=== PATIENT | female | born 1950 | race Caucasian/White ===

== ENCOUNTER → 2019-11-11 | Outpatient (CLI) | payer MEDICARE ==
[2019-11-11 14:51] LABS: BASOPHILS # (AUTO) 0.12 x10^3/uL (0-0.1); BASOPHILS % (AUTO) 1 % (0-1); EOSINOPHILS # (AUTO) 0.79 x10^3/uL (0-0.4); EOSINOPHILS % (AUTO) 8 % (1-7); LYMPHOCYTES # (AUTO) 2.52 x10^3/uL (1-3.4); LYMPHOCYTES % (AUTO) 24 % (22-44); MD NO; MEAN CORPUSCULAR HEMOGLOBIN 28.8 pg (27.0-34.8); MEAN CORPUSCULAR HGB CONC 31.5 g/dL (32.4-35.8); MEAN CORPUSCULAR VOLUME 91.5 fL (80-100); MEAN PLATELET VOLUME 8.6 fL (7.4-10.4); MONOCYTES # (AUTO) 0.72 x10^3/uL (0.2-0.8); MONOCYTES % (AUTO) 7 % (2-9); NEUTROPHILS # (AUTO) 6.45 x10^3/uL (1.8-6.8); NEUTROPHILS % (AUTO) 61 % (42-75); PLATELET COUNT 344 x10^3/uL (130-400); RED BLOOD COUNT 4.74 x10^6/uL (3.82-5.3)
[2019-11-11 15:01] LABS: ANION GAP 4 mmol/L (5-15); CALCIUM 8.9 mg/dL (8.5-10.1); CHLORIDE 101 mmol/L (98-107)
[2019-11-11 15:13] LABS: INTERNATIONAL NORMALIZED RATIO 0.97 (0.93-1.1)
== END | disposition home or self-care (01) ==
LOC: STAR 13:30
PROVIDERS: ATTEND Orthopaedic Surgery
DX: Z01.812 Encounter for preprocedural laboratory examination (principal); T84.84XA Pain due to internal orthopedic prosthetic devices, implants and grafts, initial encounter; Y83.8 Other surgical procedures as the cause of abnormal reaction of the patient, or of later complication, without mention of misadventure at the time of the procedure; Y92.89 Other specified places as the place of occurrence of the external cause; Z96.651 Presence of right artificial knee joint; Z20.828 Contact with and (suspected) exposure to other viral communicable diseases
CPT/HCPCS: 36415; 80048; 83036; 85025; 85610; 85730; 87081; 87635; 93005

== ENCOUNTER 2019-11-16 10:08 | Inpatient (IN) | payer MEDICARE ==
[~2019-11-16] VITALS: Ht 165.1 cm; Wt 99.5 kg
[~2019-11-16 10:08] MED LIST: EPINEPHRINE 1 MG/ML, 1ML ONE; FENTANYL PF 250 MCG/5ML ONE; KETOROLAC 60 MG/2 ML ONE; MIDAZOLAM 1 MG/ML, 2ML ONE; ROPIvacaine/PF 0.5%, 20 ML ONE; ROPIvacaine/PF 0.5%, 30 ML ONE; SODIUM CHLORIDE 0.9% 50 ML ONE; TOBRAMYCIN SULFATE 1.2 GM IMP ONE; TRANEXAMIC ACID 100 MG/ML, 10ML ONE; VANCOMYCIN 1,000 MG ONE
[2019-11-16] MEDS ORDERED: PROPOFOL 10 MG/ML, 20ML ONE (10:24)
[2019-11-16] MEDS ORDERED: GLYCOPYRROLATE 0.2MG/1ML, 5ML ONE ×2 (10:24→13:02)
[2019-11-16] MEDS ORDERED: ROCURONIUM 10MG/ML,5ML ONE (10:24)
[2019-11-16] MEDS ORDERED: ONDANSETRON 2MG/ML, 2ML ONE ×2 (10:24)
[2019-11-16] MEDS ORDERED: CEFAZOLIN 1,000 MG ONE ×2 (10:24)
[2019-11-16] MEDS ORDERED: DEXAMETHASONE 4 MG/ML, 1ML ONE ×2 (10:24)
[2019-11-16] MEDS ORDERED: NEOSTIGMINE 1 MG/ML, 10ML ONE ×2 (10:24→13:02)
[2019-11-16] MEDS ORDERED: ROPIvacaine/PF 0.5%, 30 ML ONE (10:25)
[2019-11-16] MEDS ORDERED: EPINEPHRINE 1 MG/ML, 1ML ONE (10:25)
[2019-11-16] MEDS ORDERED: METHYLENE BLUE 50 MG/10 ML AMP ONE (10:27)
[2019-11-16] MEDS ORDERED: LACTATED RINGERS 1,000 ML IV SCH (10:34)
[2019-11-16 10:44] VITALS: BP 191/78
[2019-11-16] MEDS ORDERED: SENNA/DOCUSATE TABLET PO PRN (11:00)
[2019-11-16] MEDS ORDERED: BISACODYL 10 MG SUPP PR PRN (11:00)
[2019-11-16] MEDS ORDERED: HYDROmorphone 1 MG/ML, 1ML INJ IV PRN (11:00)
[2019-11-16] MEDS ORDERED: ACETAMINOPHEN 500 MG TABLET PO ONE (11:00)
[2019-11-16] MEDS ORDERED: ONDANSETRON 4 MG TABLET PO PRN (11:00)
[2019-11-16] MEDS ORDERED: GABAPENTIN 300 MG CAPSULE PO ONE (11:00)
[2019-11-16] MEDS ORDERED: ACETAMINOPHEN 650 MG/20.3 ML UDC PO PRN (11:00)
[2019-11-16] MEDS ORDERED: DIPHENHYDRAMINE 25 MG CAPSULE PO PRN (11:00)
[2019-11-16] MEDS ORDERED: VANCOMYCIN PER PHARMACY MC PRN ×2 (11:00)
[2019-11-16] MEDS ORDERED: ZOLPIDEM 5MG TABLET PO PRN (11:00)
[2019-11-16] MEDS ORDERED: CHLORHEXIDINE 15 ML UDC MM ONE (11:00)
[2019-11-16] MEDS ORDERED: MAGNESIUM HYDROXIDE 8%, 30ML UDC PO PRN (11:00)
[2019-11-16] MEDS ORDERED: ONDANSETRON 2MG/ML, 2ML IV PRN (11:00)
[2019-11-16] MEDS ORDERED: CHLORHEXIDINE 15 ML UDC ONE (11:09)
[2019-11-16] MEDS ORDERED: GABAPENTIN 300 MG CAPSULE ONE (11:09)
[2019-11-16] MEDS ORDERED: AMIT50TA PO (11:19)
[2019-11-16] MEDS ORDERED: CLIN150C14 PO (11:27)
[2019-11-16] MEDS ORDERED: METH10TA2 PO (11:27)
[2019-11-16] MEDS ORDERED: MELO15TA24 PO (11:27)
[2019-11-16] MEDS ORDERED: ASPI-496 PO (11:27)
[2019-11-16] MEDS ORDERED: CAL-MAG-ZINC PO (11:27)
[2019-11-16] MEDS ORDERED: LEVO500C3 PO (11:27)
[2019-11-16] MEDS ORDERED: VANCOMYCIN 1,800 MG in SODIUM CHLORIDE 0.9% 250 ML IV ONE (11:30)
[2019-11-16] MEDS ORDERED: PHARMACOKINETIC CONSULTATION MC ONE (11:30)
[2019-11-16] MEDS ORDERED: ROSU5TAB PO (11:36)
[2019-11-16] MEDS ORDERED: TRAZ-175 PO (11:36)
[2019-11-16] MEDS ORDERED: CHOL10003 PO (11:36)
[2019-11-16] MEDS ORDERED: METO25TA2 PO (11:36)
[2019-11-16] MEDS ORDERED: ALBU18HF INH (11:36)
[2019-11-16] MEDS ORDERED: OXYC1TAB18 PO (11:36)
[2019-11-16] MEDS ORDERED: PANT500T PO (11:36)
[2019-11-16] MEDS ORDERED: CYAN25009 PO (11:36)
[2019-11-16] MEDS ORDERED: ESOM20CA PO (11:36)
[2019-11-16] MEDS ORDERED: DIPHENHYDRAMINE 50 MG/ML, 1ML IVPush PRN (12:00)
[2019-11-16] MEDS ORDERED: hydrALAzine 20 MG/ML, 1ML IV PRN (12:00)
[2019-11-16] MEDS ORDERED: PROMETHAZINE 25 MG/ML, 1ML IVPush PRN (12:00)
[2019-11-16] MEDS ORDERED: ONDANSETRON 2MG/ML, 2ML IVPush PRN (12:00)
[2019-11-16] MEDS ORDERED: DIAZEPAM 5 MG/ML, 2ML IVPush PRN (12:00)
[2019-11-16] MEDS ORDERED: ACETAMINOPHEN 325 MG TABLET PO PRN (12:00)
[2019-11-16] MEDS ORDERED: LABETALOL 5MG/ML, 20ML IV PRN (12:00)
[2019-11-16] MEDS ORDERED: FENTANYL PF 100 MCG/2ML IV PRN (12:00)
[2019-11-16] MEDS ORDERED: MEPERIDINE/PF 25MG/0.5ML IVPush PRN (12:00)
[2019-11-16] MEDS ORDERED: OXYcodone 5 MG/5 ML ORAL.SOL UDC PO PRN (12:00)
[2019-11-16] MEDS ORDERED: VANCOMYCIN 1,000 MG ONE (12:46)
[2019-11-16] MEDS ORDERED: HYDROmorphone 2 MG/ML, 1ML ONE (13:37)
[2019-11-16] MEDS: HYDROmorphone 1 MG/ML, 1ML INJ IVPush PRN ×4 (13:40→14:06)
[2019-11-16] MEDS ORDERED: FENTANYL PF 100 MCG/2ML ONE (13:53)
[2019-11-16] MEDS ORDERED: OXYcodone 5 MG/5 ML ORAL.SOL UDC ONE (13:54)
[2019-11-16] MEDS ORDERED: DIAZEPAM 5 MG/ML, 2ML ONE (13:54)
[2019-11-16] MEDS: DIAZEPAM 5 MG/ML, 2ML IVPush PRN ×2 (13:58→14:15)
[2019-11-16] MEDS ORDERED: ALBUTEROL HFA 90 MCG/SPRAY INH PRN (14:00)
[2019-11-16] MEDS: KETOROLAC 30 MG/1 ML IM SCH ×2 (15:39→20:36)
[2019-11-16] MEDS: METHADONE 10 MG TABLET PO SCH ×2 (15:39→20:37)
[2019-11-16] MEDS: ACETAMINOPHEN 650 MG/20.3 ML UDC PO SCH ×2 (15:39→20:38)
[2019-11-16] MEDS: NS + 20MEQ KCL 1,000 ML IV SCH (16:36)
[2019-11-16] MEDS ORDERED: HYDROmorphone 2MG TABLET ONE ×2 (17:50→20:52)
[2019-11-16] MEDS: CEFTRIAXONE PMX 2GM/50ML 50 ML IV SCH (17:51)
[2019-11-16] MEDS: ASPIRIN 81 MG TABLET EC PO SCH (17:51)
[2019-11-16] MEDS: HYDROmorphone 4MG TABLET PO PRN ×2 (17:52→20:54)
[2019-11-16] MEDS ORDERED: CEFAZOLIN PMX 2GM/50ML 50 ML IVPB SCH (18:00)
[2019-11-16 18:30] VITALS: BP 134/83
[2019-11-16] MEDS: AMITRIPTYLINE 50 MG TABLET PO SCH (20:36)
[2019-11-16] MEDS: ATORVASTATIN 20 MG TABLET PO SCH (20:36)
[2019-11-16] MEDS: DOCUSATE 100 MG CAPSULE PO SCH (20:36)
[2019-11-16] MEDS: TRAZODONE 150MG TABLET PO SCH (20:37)
[2019-11-16] MEDS: METOPROLOL TARTRATE 25 MG TAB PO SCH (20:46)
[2019-11-16 23:18] VITALS: BP 128/71
[2019-11-17 03:50] VITALS: BP 96/62
[2019-11-17] MEDS: NS + 20MEQ KCL 1,000 ML IV SCH ×2 (04:30→15:43)
[2019-11-17 04:43] LABS: HCT (SEDRATE) 35.8 % (34.6-47.8)
[2019-11-17] MEDS ORDERED: HYDROmorphone 2MG TABLET ONE ×4 (05:16→17:19)
[2019-11-17] MEDS: ASPIRIN 81 MG TABLET EC PO SCH ×2 (05:17→17:25)
[2019-11-17] MEDS: PANTOPRAZOLE 20MG TABLET PO SCH (05:17)
[2019-11-17] MEDS: METOPROLOL TARTRATE 25 MG TAB PO SCH ×2 (05:18→17:25)
[2019-11-17] MEDS: HYDROmorphone 4MG TABLET PO PRN ×4 (05:19→17:20)
[2019-11-17] MEDS ORDERED: DEXAMETHASONE 4 MG/ML, 1ML IVPush SCH (06:00)
[2019-11-17 06:52] VITALS: BP 99/61
[2019-11-17] MEDS: CHOLECALCIFEROL 1,000 UNIT TABLET PO SCH (08:05)
[2019-11-17] MEDS: KETOROLAC 30 MG/1 ML IM SCH ×3 (08:05→23:44)
[2019-11-17] MEDS: METOPROLOL SUCCINATE 25 MG TAB.ER.24H PO SCH (08:06)
[2019-11-17] MEDS: METHADONE 10 MG TABLET PO SCH ×3 (08:06→21:20)
[2019-11-17] MEDS: ACETAMINOPHEN 650 MG/20.3 ML UDC PO SCH ×3 (08:06→23:40)
[2019-11-17] MEDS: DOCUSATE 100 MG CAPSULE PO SCH ×2 (08:06→23:41)
[2019-11-17] MEDS ORDERED: PHARMACOKINETIC MONITORING MC PRN (11:00)
[2019-11-17] MEDS ORDERED: VANCOMYCIN PER PHARMACY MC PRN (11:00)
[2019-11-17] MEDS: VANCOMYCIN 1,400 MG in SODIUM CHLORIDE 0.9% 250 ML IV SCH (11:46)
[2019-11-17 14:20] VITALS: BP 115/67
[2019-11-17] MEDS: CEFTRIAXONE PMX 2GM/50ML 50 ML IV SCH (17:25)
[2019-11-17 19:50] VITALS: BP 117/51
[2019-11-17] MEDS: ATORVASTATIN 20 MG TABLET PO SCH (23:41)
[2019-11-17] MEDS: TRAZODONE 150MG TABLET PO SCH (23:41)
[2019-11-17] MEDS: AMITRIPTYLINE 50 MG TABLET PO SCH (23:41)
[2019-11-18] VITALS: BP 117/70
[2019-11-18 04:15] VITALS: BP 118/70
[2019-11-18] MEDS: NS + 20MEQ KCL 1,000 ML IV SCH ×2 (05:30→16:29)
[2019-11-18 06:37] VITALS: BP 115/59
[2019-11-18] MEDS: PANTOPRAZOLE 20MG TABLET PO SCH (06:37)
[2019-11-18] MEDS: METOPROLOL TARTRATE 25 MG TAB PO SCH ×2 (06:37→17:37)
[2019-11-18] MEDS: ASPIRIN 81 MG TABLET EC PO SCH ×2 (06:37→17:07)
[2019-11-18] MEDS ORDERED: HYDROmorphone 2MG TABLET ONE ×4 (06:42→22:55)
[2019-11-18] MEDS: HYDROmorphone 4MG TABLET PO PRN ×4 (06:43→22:59)
[2019-11-18] MEDS: METHADONE 10 MG TABLET PO SCH ×3 (08:43→21:10)
[2019-11-18] MEDS: METOPROLOL SUCCINATE 25 MG TAB.ER.24H PO SCH (08:43)
[2019-11-18] MEDS: CHOLECALCIFEROL 1,000 UNIT TABLET PO SCH (08:43)
[2019-11-18] MEDS: DOCUSATE 100 MG CAPSULE PO SCH ×2 (08:43→21:11)
[2019-11-18] MEDS: KETOROLAC 30 MG/1 ML IV SCH ×3 (08:43→21:10)
[2019-11-18] MEDS: ACETAMINOPHEN 650 MG/20.3 ML UDC PO SCH ×2 (08:44→15:27)
[2019-11-18] MEDS: VANCOMYCIN 1,400 MG in SODIUM CHLORIDE 0.9% 250 ML IV SCH (11:51)
[2019-11-18 12:19] VITALS: BP 111/64
[2019-11-18] MEDS: CEFTRIAXONE PMX 2GM/50ML 50 ML IV SCH (17:37)
[2019-11-18 19:52] VITALS: BP 128/46
[2019-11-18] MEDS: ATORVASTATIN 20 MG TABLET PO SCH (21:10)
[2019-11-18] MEDS: ACETAMINOPHEN 500 MG TABLET PO SCH (21:11)
[2019-11-18] MEDS: TRAZODONE 150MG TABLET PO SCH (22:58)
[2019-11-18] MEDS: AMITRIPTYLINE 50 MG TABLET PO SCH (22:59)
[2019-11-19 00:34] VITALS: BP 106/64
[2019-11-19 05:57] VITALS: BP 126/70
[2019-11-19] MEDS: METOPROLOL TARTRATE 25 MG TAB PO SCH ×2 (06:00→17:10)
[2019-11-19] MEDS: ASPIRIN 81 MG TABLET EC PO SCH ×2 (06:00→17:10)
[2019-11-19] MEDS: PANTOPRAZOLE 20MG TABLET PO SCH (06:00)
[2019-11-19] MEDS: HYDROmorphone 2MG TABLET PO PRN ×4 (06:05→23:47)
[2019-11-19] MEDS: NS + 20MEQ KCL 1,000 ML IV SCH ×2 (06:10→20:34)
[2019-11-19 07:05] VITALS: BP 110/70
[2019-11-19] MEDS: CHOLECALCIFEROL 1,000 UNIT TABLET PO SCH (08:13)
[2019-11-19] MEDS: METOPROLOL SUCCINATE 25 MG TAB.ER.24H PO SCH (08:13)
[2019-11-19] MEDS: KETOROLAC 30 MG/1 ML IV SCH ×3 (08:13→21:13)
[2019-11-19] MEDS: METHADONE 10 MG TABLET PO SCH ×4 (08:13→21:12)
[2019-11-19] MEDS: DOCUSATE 100 MG CAPSULE PO SCH ×2 (08:13→21:12)
[2019-11-19] MEDS: ACETAMINOPHEN 500 MG TABLET PO SCH ×3 (08:14→21:12)
[2019-11-19 11:22] LABS: CREATININE 0.76 mg/dL (0.55-1.02)
[2019-11-19 11:39] LABS: VANCOMYCIN,TROUGH 16.3 mcg/mL (5.0-10.0)
[2019-11-19] MEDS: VANCOMYCIN 1,400 MG in SODIUM CHLORIDE 0.9% 250 ML IV SCH (11:49)
[2019-11-19 13:50] VITALS: BP 144/73
[2019-11-19] MEDS: CEFTRIAXONE PMX 2GM/50ML 50 ML IV SCH (17:11)
[2019-11-19 19:25] VITALS: BP 132/74
[2019-11-19] MEDS: TRAZODONE 150MG TABLET PO SCH ×3 (20:34→23:46)
[2019-11-19] MEDS: AMITRIPTYLINE 50 MG TABLET PO SCH ×3 (20:35→23:46)
[2019-11-19] MEDS: ATORVASTATIN 20 MG TABLET PO SCH (20:35)
[2019-11-20 04:30] VITALS: BP 125/57
[2019-11-20] MEDS: HYDROmorphone 2MG TABLET PO PRN ×2 (05:43→09:14)
[2019-11-20] MEDS: METOPROLOL TARTRATE 25 MG TAB PO SCH ×2 (05:44→18:02)
[2019-11-20] MEDS: PANTOPRAZOLE 20MG TABLET PO SCH (05:44)
[2019-11-20] MEDS: ASPIRIN 81 MG TABLET EC PO SCH ×2 (05:44→18:01)
[2019-11-20] MEDS: NS + 20MEQ KCL 1,000 ML IV SCH ×2 (05:45→20:00)
[2019-11-20 06:51] VITALS: BP 126/61
[2019-11-20] MEDS: KETOROLAC 30 MG/1 ML IV SCH ×3 (08:54→20:37)
[2019-11-20] MEDS: CHOLECALCIFEROL 1,000 UNIT TABLET PO SCH (08:54)
[2019-11-20] MEDS: DOCUSATE 100 MG CAPSULE PO SCH ×3 (08:55→20:36)
[2019-11-20] MEDS: METOPROLOL SUCCINATE 25 MG TAB.ER.24H PO SCH (08:55)
[2019-11-20] MEDS: ACETAMINOPHEN 500 MG TABLET PO SCH ×3 (08:55→20:38)
[2019-11-20] MEDS: METHADONE 10 MG TABLET PO SCH ×3 (08:55→20:38)
[2019-11-20] MEDS: VANCOMYCIN 1,400 MG in SODIUM CHLORIDE 0.9% 250 ML IV SCH (11:59)
[2019-11-20 13:01] VITALS: BP 132/65
[2019-11-20] MEDS: CEFTRIAXONE PMX 2GM/50ML 50 ML IV SCH (18:01)
[2019-11-20 18:04] VITALS: BP 155/74
[2019-11-20] MEDS: AMITRIPTYLINE 50 MG TABLET PO SCH (20:37)
[2019-11-20] MEDS: ATORVASTATIN 20 MG TABLET PO SCH (20:38)
[2019-11-20] MEDS: TRAZODONE 150MG TABLET PO SCH (23:00)
[2019-11-21 01:41] VITALS: BP 129/72
[2019-11-21 05:09] LABS: HCT (SEDRATE) 35.5 % (34.6-47.8)
[2019-11-21 05:16] LABS: BASOPHILS # (AUTO) 0.04 x10^3/uL (0-0.1); BASOPHILS % (AUTO) 1 % (0-1); EOSINOPHILS # (AUTO) 0.89 x10^3/uL (0-0.4); EOSINOPHILS % (AUTO) 11 % (1-7); LYMPHOCYTES # (AUTO) 1.75 x10^3/uL (1-3.4); LYMPHOCYTES % (AUTO) 21 % (22-44); MD NO; MEAN CORPUSCULAR HEMOGLOBIN 28.8 pg (27.0-34.8); MEAN CORPUSCULAR HGB CONC 31.8 g/dL (32.4-35.8); MEAN CORPUSCULAR VOLUME 90.6 fL (80-100); MEAN PLATELET VOLUME 8.3 fL (7.4-10.4); MONOCYTES # (AUTO) 0.69 x10^3/uL (0.2-0.8); MONOCYTES % (AUTO) 8 % (2-9); NEUTROPHILS % (AUTO) 59 % (42-75); PLATELET COUNT 296 x10^3/uL (130-400); RED BLOOD COUNT 3.93 x10^6/uL (3.82-5.3); RED CELL DISTRIBUTION WIDTH 14.9 % (9.6-15.2)
[2019-11-21 05:22] LABS: ALBUMIN 2.6 g/dL (3.4-5.0); ANION GAP 3 mmol/L (5-15); CALCIUM 8.4 mg/dL (8.5-10.1); CHLORIDE 102 mmol/L (98-107)
[2019-11-21 05:34] LABS: ALANINE AMINOTRANSFERASE 30 U/L (12-78); ALKALINE PHOSPHATASE 117 U/L (45-117); BILIRUBIN,TOTAL 0.5 mg/dL (0.2-1.0); C-REACTIVE PROTEIN, QUANT 0.93 mg/dL (0.02-0.49); CREATININE 0.69 mg/dL (0.55-1.02); TOTAL PROTEIN 6.9 g/dL (6.4-8.2)
[2019-11-21] MEDS: PANTOPRAZOLE 20MG TABLET PO SCH (06:27)
[2019-11-21] MEDS: METOPROLOL TARTRATE 25 MG TAB PO SCH ×2 (06:27→17:56)
[2019-11-21] MEDS: ASPIRIN 81 MG TABLET EC PO SCH ×2 (06:27→17:55)
[2019-11-21] MEDS: KETOROLAC 30 MG/1 ML IV SCH ×3 (06:34→20:41)
[2019-11-21 08:10] VITALS: BP 132/68
[2019-11-21] MEDS: NS + 20MEQ KCL 1,000 ML IV SCH ×2 (08:30→19:28)
[2019-11-21] MEDS: METOPROLOL SUCCINATE 25 MG TAB.ER.24H PO SCH (08:46)
[2019-11-21] MEDS: METHADONE 10 MG TABLET PO SCH ×3 (08:46→20:40)
[2019-11-21] MEDS: CHOLECALCIFEROL 1,000 UNIT TABLET PO SCH (08:47)
[2019-11-21] MEDS: DOCUSATE 100 MG CAPSULE PO SCH ×2 (08:47→21:00)
[2019-11-21] MEDS: ACETAMINOPHEN 500 MG TABLET PO SCH ×3 (08:47→20:40)
[2019-11-21] MEDS: DAPTOMYCIN 600 MG in SODIUM CHLORIDE 0.9% 100 ML IV SCH (11:19)
[2019-11-21] MEDS: ERTAPENEM 1 GM in SODIUM CHLORIDE 0.9% 50 ML IV SCH (12:30)
[2019-11-21 14:17] VITALS: BP 160/79
[2019-11-21 17:57] VITALS: BP 136/73
[2019-11-21 19:02] VITALS: BP 162/75
[2019-11-21] MEDS: TRAZODONE 150MG TABLET PO SCH (20:39)
[2019-11-21] MEDS: AMITRIPTYLINE 50 MG TABLET PO SCH (20:40)
[2019-11-21 23:30] VITALS: BP 150/83
[2019-11-22 05:14] VITALS: BP 156/79
[2019-11-22] MEDS: ASPIRIN 81 MG TABLET EC PO SCH ×2 (05:16→17:07)
[2019-11-22] MEDS: METOPROLOL TARTRATE 25 MG TAB PO SCH ×2 (05:16→17:08)
[2019-11-22] MEDS: PANTOPRAZOLE 20MG TABLET PO SCH (05:17)
[2019-11-22 06:35] VITALS: BP 147/81
[2019-11-22] MEDS ORDERED: HYDR4TAB48 PO (08:37)
[2019-11-22] MEDS: DOCUSATE 100 MG CAPSULE PO SCH ×2 (09:00→20:53)
[2019-11-22] MEDS: ACETAMINOPHEN 500 MG TABLET PO SCH ×3 (09:02→20:54)
[2019-11-22] MEDS: METHADONE 10 MG TABLET PO SCH ×3 (09:02→20:54)
[2019-11-22] MEDS: METOPROLOL SUCCINATE 25 MG TAB.ER.24H PO SCH (09:02)
[2019-11-22] MEDS: KETOROLAC 30 MG/1 ML IV SCH ×3 (09:02→20:52)
[2019-11-22] MEDS: CHOLECALCIFEROL 1,000 UNIT TABLET PO SCH (09:02)
[2019-11-22] MEDS: NS + 20MEQ KCL 1,000 ML IV SCH ×2 (09:03→22:00)
[2019-11-22] MEDS: DAPTOMYCIN 600 MG in SODIUM CHLORIDE 0.9% 100 ML IV SCH (11:13)
[2019-11-22] MEDS: ERTAPENEM 1 GM in SODIUM CHLORIDE 0.9% 50 ML IV SCH (12:43)
[2019-11-22 13:37] VITALS: BP 149/69
[2019-11-22 18:39] VITALS: BP 149/76
[2019-11-22] MEDS: AMITRIPTYLINE 50 MG TABLET PO SCH (20:54)
[2019-11-22] MEDS: TRAZODONE 150MG TABLET PO SCH (22:48)
[2019-11-23 03:39] VITALS: BP 123/69
[2019-11-23] MEDS: PANTOPRAZOLE 20MG TABLET PO SCH (05:34)
[2019-11-23] MEDS: METOPROLOL TARTRATE 25 MG TAB PO SCH (05:34)
[2019-11-23] MEDS: ASPIRIN 81 MG TABLET EC PO SCH (05:34)
[2019-11-23 07:16] VITALS: BP 133/75
[2019-11-23] MEDS: CHOLECALCIFEROL 1,000 UNIT TABLET PO SCH (08:17)
[2019-11-23] MEDS: ACETAMINOPHEN 500 MG TABLET PO SCH (08:17)
[2019-11-23] MEDS: DOCUSATE 100 MG CAPSULE PO SCH (08:18)
[2019-11-23] MEDS: METOPROLOL SUCCINATE 25 MG TAB.ER.24H PO SCH (08:18)
[2019-11-23] MEDS: METHADONE 10 MG TABLET PO SCH (08:18)
[2019-11-23] MEDS: DAPTOMYCIN 600 MG in SODIUM CHLORIDE 0.9% 100 ML IV SCH (08:39)
[2019-11-23] MEDS ORDERED: OXYC-307 PO (09:06)
[2019-11-23] MEDS: ERTAPENEM 1 GM in SODIUM CHLORIDE 0.9% 50 ML IV SCH (09:20)
== END 2019-11-23 10:39 | disposition home health service (06) | DRG 468 ==
LOC: ORIP 10:14 → 4NE 14:53
PROVIDERS: ADMIT Orthopaedic Surgery; ATTEND Orthopaedic Surgery
PROC: 0SRC0EZ Replacement of Right Knee Joint with Articulating Spacer, Open Approach (ICD-10-PCS; 2019-11-16)
PROC: 0SBC0ZZ Excision of Right Knee Joint, Open Approach (ICD-10-PCS; 2019-11-16)
PROC: 3E0T3BZ Introduction of Anesthetic Agent into Peripheral Nerves and Plexi, Percutaneous Approach (ICD-10-PCS; 2019-11-16)
PROC: 0SPC0JZ Removal of Synthetic Substitute from Right Knee Joint, Open Approach (ICD-10-PCS; principal; 2019-11-16 14:30)
PROC: 02HV33Z Insertion of Infusion Device into Superior Vena Cava, Percutaneous Approach (ICD-10-PCS; 2019-11-21)
PROC: B548ZZA Ultrasonography of Superior Vena Cava, Guidance (ICD-10-PCS; 2019-11-21)
PROC: B5181ZA Fluoroscopy of Superior Vena Cava using Low Osmolar Contrast, Guidance (ICD-10-PCS; 2019-11-21)
DX: T84.53XA Infection and inflammatory reaction due to internal right knee prosthesis, initial encounter (principal); D72.829 Elevated white blood cell count, unspecified; E78.5 Hyperlipidemia, unspecified; G89.29 Other chronic pain; I10 Essential (primary) hypertension; J44.9 Chronic obstructive pulmonary disease, unspecified; Y83.1 Surgical operation with implant of artificial internal device as the cause of abnormal reaction of the patient, or of later complication, without mention of misadventure at the time of the procedure; Z80.1 Family history of malignant neoplasm of trachea, bronchus and lung; Z87.891 Personal history of nicotine dependence; M54.9 Dorsalgia, unspecified
CPT/HCPCS: 36415; 36573; 80053; 80202; 82565; 84520; 85014; 85018; 85025; 85651; 86140; 86850; 86900; 87040; 87070; 87075; 87176; 87205; C1713; G0378; J0171; J0690; J0696; J0878; J1100; J1170; J1335; J1885; J2250; J2405; J2704; J2710; J2795; J3010; J3260; J3360; J3370; J3480; Q9968; C1751; C1776; J7050; J7120